=== PATIENT | female | born 1975 | race Caucasian/White ===

== ENCOUNTER 2020-09-27 12:22 | Inpatient (IN) | payer MEDICAID ==
[~2020-09-27] VITALS: Ht 167.6 cm; Wt 78.0 kg
[2020-09-27] MEDS ORDERED: IV NORMAL SALINE 1000ML BAG 1,000 ML IV ONE ×2 (12:45)
[2020-09-27] MEDS ORDERED: cefTRIAXone IV Push 1 GM VIAL. IVP ONE (12:45)
[2020-09-27] MEDS ORDERED: AZITHRMYCN 500MG IVPB FOR OMNI 250 ML IV ONE (12:45)
--- NOTE | 2020-09-27 12:50 | PHYS DOC ---
General Adult EDM: Chief Complaint: SHORTNESS OF BREATH HPI: HPI: 45-year-old female past medical history of autoimmune hepatitis/stage IV cirrhosis (follows at ), presents to the ED with complaints of worsening shortness of breath at rest with hemoptysis, constant chest pressure and generalized weakness for the past 4 days. Patient states she tested positive for Covid 4 days ago and is quarantined in a hotel room. Does smoke tobacco but is attempting to quit. No official COPD or asthma diagnosis-no h/o hospitalizations/intubations for emphysema. Reports "I feel dry, can I have ice chips." Review of Systems: Review of Systems: Constitutional: Denies fever or chills. [] Eyes: Denies change in visual acuity. [] HENT: Denies nasal congestion or sore throat. [] Respiratory: Denies retractions, increased work of breathing Cardiovascular: Denies edema or syncope GI: Denies abdominal pain, nausea, vomiting, bloody stools or diarrhea. [] : Denies dysuria or hematuria Musculoskeletal: Denies back pain or joint pain/swelling. [] Integument: Denies rash. [] Neurologic: Denies headache, or neck stiffness, focal weakness or sensory changes. [] Endocrine: Denies polyuria or polydipsia. [] Lymphatic: Denies swollen glands. [] Psychiatric: Denies depression or anxiety. [] Heart Score: HEART Score for Chest Pain: HEART Score for Chest Pain Response (Comments) Value History Slighlty/Non-Suspicious 0 ECG Nonspecific Repolarizatio 1 Age >45 - < 65 1 Risk Factors 1 or 2 Risk Factors 1 Troponin < Normal Limit 0 Total 3 Risk Factors: Risk Factors: DM, Current or recent (<one month) smoker, HTN, HLP, family history of CAD, obesity. Risk Scores: Score 0 - 3: 2.5% MACE over next 6 weeks - Discharge Home Score 4 - 6: 20.3% MACE over next 6 weeks - Admit for Clinical Observation Score 7 - 10: 72.7% MACE over next 6 weeks - Early Invasive Strategies Current Medications: Current Medications Medications (Trade) Dose Ordered Sig/Hilaria Start Time Stop Time Status Last Admin Dose Admin Azithromycin 250 ml @ 250 mls/hr 1X ONCE 09/27/20 12:45 09/27/20 13:44 UNV Ceftriaxone Sodium (Rocephin) 1 gm 1X ONCE 09/27/20 12:45 09/27/20 12:46 UNV Sodium Chloride 1,000 ml @ 1,000 mls/hr 1X ONCE 09/27/20 12:45 09/27/20 13:44 UNV Physical Exam: PE: Constitutional: Flu appearing, febrile HENT: Normocephalic, atraumatic, Eyes: EOMI, conjunctiva normal, no discharge. Neck: Normal range of motion, supple, Cardiovascular: S1/2 present, regular rhythm, tachycardic Lungs & Thorax: Speaking in full sentences, bilateral equal chest rise, no tac hypnea or increased work of breathing, no rales crackles or wheezing, bilateral breath sounds, 93-94% RA Abdomen: soft, no tenderness, +fluid wave Skin: Warm, dry, no erythema, spider angiomas over upper chest Back: No tenderness, no CVA tenderness. [] Extremities: No tenderness, no cyanosis, no edema Neurologic: Alert and oriented X 3, normal motor function, normal sensory funct ion, no focal deficits noted. [] Psychologic: Affect normal, judgement normal, mood normal. [] EKG: EKG: Sinus tachycardia at 105 bpm, left axis deviation, normal intervals, T wave inversion aVL, no ST elevations or ST depressions Radiology/Procedures: Radiology/Procedures: IMAGING REPORT Signed PATIENT: JOHN BUTLERACCOUNT: [id number] : 1975 LOCATION: ER AGE: 45 SEX: F EXAM STATUS: REG ER ORD. PHYSICIAN: LANCE BERMAN DO REASON: soa, covid+, r/o pe PROCEDURE: CT ANGIOGRAPHY CHEST EXAM: CT Pulmonary Angiogram INDICATION: Reason: soa, covid+, r/o pe / Spl. Instructions: IV OMNI 350 100 MLS / History: TECHNIQUE: Multi-detector row images were acquired from the thoracic inlet through the upper abdomen with the use of IV contrast. Sagittal and coronal images were acquired from the transaxial data. MIP images of the pulmonary arteries were obtained. All CT scans performed at this facility utilize dose optimization techniques as appropriate to the exam, including the following: Automated exposure control and adjustment of the mA and/or KV according to patient size (this includes techniques or standardized protocols for targeted exams where dose is indication/reason for exam). IV CONTRAST: Administered COMPARISON: None FINDINGS: PULMONARY ARTERIES: No pulmonary emboli are identified. CARDIOVASCULAR: Unremarkable Aorta is normal caliber. MEDIASTINUM & EARLE: Mild mediastinal and right greater than left hilar adenopathy. No mass. LUNGS: Patchy bilateral peripheral predominant groundglass opacities are present, right greater than left hepatic consistent with atypical pneumonia. PLEURAL SPACE: No pleural effusions or pneumothorax. OSSEOUS & SOFT TISSUE: Unremarkable ABDOMEN: Nodular hepatic contour consistent with cirrhosis with partially imaged gallstone in the gallbladder fossa and enhancing varices in the gastric fundus.. IMPRESSION: 1. No pulmonary emboli. 2. Bilateral infiltrates consistent with atypical pneumonia with associated mild mediastinal and hilar adenopathy. 3. Cirrhosis with gastric varices. Electronically signed by: Akhil Murodck MD (09/27/2020 2:50 PM) [id number] DICTATED and SIGNED BY: AKHIL MURDOCK MD DATE: 09/27/20 [id number] 0 Course & Med Decision Making: Course & Med Decision Making Pertinent Labs and Imaging studies reviewed. (See chart for details) Concern for cp and dyspnea in the setting of positive COVID-19 bilateral pneumonia. Urinalysis with no bacteria, is contaminated with large blood. CT of the chest shows no pulmonary emboli and normal caliber of the aorta. Patient is tachycardic, has no tachypnea. Normal lactic acid. Patient is afebrile with no leukocytosis or leukopenia. Patient with known stage IV cirrhosis with transaminitis, no prior labs for baseline comparison. Patient with no right upper quadrant pain. Does not meet SIRS criteria although is strongly considered with persistent tachycardia (115), worsen with ambulation. Drug screen pending. Pt agrees with plan for admission. I have spoken with the patient and/or caregivers. I have explained the pat ient's condition, diagnosis and treatment plan based on the information available to me at this time. I have answered the patient's and/or caregivers questions and answered any concerns. The patient and/or caregivers have as good an understanding of the patient's diagnosis, condition and treatment plan as can be expected at this point. The patient has been stabilized within the capability of the emergency department. The patient will be transported for further care and management or will be moved to an observation or inpatient service. I have communicated with the staff or medical practitioner taking over this patient's care. Dragon Disclaimer: Dragon Disclaimer: This electronic medical record was generated, in whole or in part, using a voice recognition dictation system. Departure Departure Impression: Primary Impression: CAP (community acquired pneumonia) Additional Impressions: COVID-19 Sinus tachycardia Disposition: 09 ADMITTED INPT THIS HOSP Admitting Physician: OZ (Dr. Aranda) [facility] Sep 27, 2020 12:50
[2020-09-27] MEDS ORDERED: IOHEXOL 350 MG/ML 100 ML VIAL. IV ONE (13:30)
[2020-09-27 13:49] LABS: BASO % 0 % (0-3); EOS % 0 % (0-3); HEMOGLOBIN 14.6 g/dL (12.0-15.5); LYMPH # 1.3 x10^3/uL (1.0-4.8); LYMPH % 16 % (24-48); MEAN CORPUSCULAR HEMOGLOBIN 34 pg (25-35); MEAN CORPUSCULAR HGB CONC 34 g/dL (31-37); MEAN CORPUSCULAR VOLUME 101 fL (79-100); MONO # 0.6 x10^3/uL (0.0-1.1); MONO % 7 % (0-9); NEUT % 76 % (31-73); PLATELET COUNT 107 x10^3/uL (140-400); RED BLOOD COUNT 4.24 x10^6/uL (3.50-5.40); RED CELL DISTRIBUTION WIDTH 14.1 % (11.5-14.5); WHITE BLOOD COUNT 7.9 x10^3/uL (4.0-11.0)
[2020-09-27 13:53] LABS: BILIRUBIN,URINE NEGATIVE (NEG); CLARITY,URINE CLEAR; COLOR,URINE YELLOW; NITRITE,URINE NEGATIVE (NEG); PROTEIN,URINE NEGATIVE (NEG-TRACE)
[2020-09-27 14:03] LABS: CALCIUM 9.8 mg/dL (8.5-10.1); CREATININE 0.9 mg/dL (0.6-1.0); GFR 67.4; POTASSIUM 4.5 mmol/L (3.5-5.1)
[2020-09-27 14:10] LABS: TOTAL BILIRUBIN 1.7 mg/dL (0.2-1.0); TOTAL PROTEIN 7.9 g/dL (6.4-8.2)
[2020-09-27 14:13] LABS: RBC,URINE 20-40 /HPF (0-2)
[2020-09-27 14:14] LABS: BACTERIA,URINE 0 /HPF (0-FEW); WBC,URINE OCC /HPF (0-4)
[2020-09-27 14:24] LABS: ALBUMIN 2.4 g/dL (3.4-5.0); ALBUMIN/GLOBULIN RATIO 0.4 (1.0-1.7)
--- NOTE | 2020-09-27 14:53 | RAD ---
EXAM: CT Pulmonary Angiogram INDICATION: Reason: soa, covid+, r/o pe / Spl. Instructions: IV OMNI 350 100 MLS / History: TECHNIQUE: Multi-detector row images were acquired from the thoracic inlet through the upper abdomen with the use of IV contrast. Sagittal and coronal images were acquired from the transaxial data. MIP images of the pulmonary arteries were obtained. All CT scans performed at this facility utilize dose optimization techniques as appropriate to the exam, including the following: Automated exposure control and adjustment of the mA and/or KV according to patient size (this includes techniques or standardized protocols for targeted exams where dose is indication/reason for exam). IV CONTRAST: Administered COMPARISON: None FINDINGS: PULMONARY ARTERIES: No pulmonary emboli are identified. CARDIOVASCULAR: Unremarkable Aorta is normal caliber. MEDIASTINUM & EARLE: Mild mediastinal and right greater than left hilar adenopathy. No mass. LUNGS: Patchy bilateral peripheral predominant groundglass opacities are present, right greater than left hepatic consistent with atypical pneumonia. PLEURAL SPACE: No pleural effusions or pneumothorax. OSSEOUS & SOFT TISSUE: Unremarkable ABDOMEN: Nodular hepatic contour consistent with cirrhosis with partially imaged gallstone in the gallbladder fossa and enhancing varices in the gastric fundus.. IMPRESSION: 1. No pulmonary emboli. 2. Bilateral infiltrates consistent with atypical pneumonia with associated mild mediastinal and hilar adenopathy. 3. Cirrhosis with gastric varices. Electronically signed by: Santino Murdock MD (09/27/2020 2:50 PM) [id number]
[2020-09-27] MEDS ORDERED: KETOROLAC 15 MG/ML VIAL. IVP ONE (15:00)
[2020-09-27] MEDS ORDERED: PROCHLORPERAZINE 10 MG/2 ML VIAL. IV ONE (15:00)
[2020-09-27 16:55] LABS: AMPHETAMINE/METHAMPHETAMINE POS (NEG); BARBITURATES NEG (NEG); BENZODIAZEPINES NEG (NEG); CANNABINOIDS NEG (NEG); COCAINE NEG (NEG); METHADONE NEG (NEG); OPIATES POS (NEG); PHENCYCLIDINE NEG (NEG)
[2020-09-27 17:00] VITALS: BP 123/88
[2020-09-27] MEDS ORDERED: diphenhydrAMINE 50 MG/ML VIAL IVP PRN (17:00)
[2020-09-27] MEDS ORDERED: DOCUSATE SODIUM 100 MG CAPSULE. PO PRN (17:00)
[2020-09-27] MEDS ORDERED: LORazepam 0.5 MG TABLET PO PRN (17:00)
[2020-09-27] MEDS ORDERED: ONDANSETRON PF 4 MG/2 ML VIAL. IV PRN (17:00)
[2020-09-27] MEDS ORDERED: fentaNYL PF VIAL 100 MCG/2 ML VIAL IV PRN (17:00)
[2020-09-27] MEDS ORDERED: guaiFENesin ORAL 200 MG/10 ML LIQUID. PO PRN (17:00)
[2020-09-27] MEDS ORDERED: ACETAMINOPHEN 325 MG TABLET. PO PRN ×2 (17:00)
--- NOTE | 2020-09-27 17:10 | PDOC1 ---
History and Physical Date of Admission Date of Admission 09/27/2020 Identification/Chief Complaint Chief Complaint Shortness of breath Source Source: Chart review, Patient History of Present Illness History of Present Illness Patient is a 45-year-old female with past medical history of autoimmune hepatitis who was recently diagnosed with COVID-19 approximately 4 days prior to her visit to the emergency department. The patient has been quarantining in a local hotel but today apparently was more short of air coughing and not feeling well. She decided to come to the emergency department for evaluation. She underwent a CTA of the chest with no evidence of pulmonary emboli unfortunately the patient has bilateral pneumonia which most likely is secondary to her COVID-19 infection. Given the acuity of her presentation she will be started on broad-spectrum antibiotics and have started her also on methylprednisolone ascorbic acid and I will put orders also for thiamine and enoxaparin. As part of her COVID-19 supportive measures she will also receive vitamin D and zinc. At the time of my visit the patient is a poor historian due to the acuity of her disease. She is moaning and groaning and answering in yes and no fashion. Not able to provide me much history at this time, we will also check ammonia levels noted to ensure that she is not suffering from a decompensation due to her u nderlying hepatic disease. All of her concerns were addressed to the best of my abilities. ER history is as follows: ED Adult General Template Patient Name: Iesha Holt Unit Number: [id number] Date of : 1975 Patient Status: Registered Emergency Room Attending Doctor: Kiersten Callahan DO Past Medical History Past Medical History General Adult General Adult EDM: Chief Complaint: SHORTNESS OF BREATH HPI: HPI: 45-year-old female past medical history of autoimmune hepatitis/stage IV cirrhosis (follows at ), presents to the ED with complaints of worsening shortness of breath at rest with hemoptysis, constant chest pressure and generalized weakness for the past 4 days. Patient states she tested positive for Covid 4 days ago and is quarantined in a hotel room. Does smoke tobacco but is attempting to quit. No official COPD or asthma diagnosis-no h/o hospitalizations/intubations for emphysema. Reports "I feel dry, can I have ice chips." Past Medical History Past Medical History Autoimmune hepatitis/cirrhosis Past Surgical History Past Surgical History: No pertinent history Family History Family History: No Significant Social History Smoke: No ALCOHOL: none Drugs: None Current Problem List Problem List Problems Medical Problems: (1) CAP (community acquired pneumonia) Status: Acute (2) COVID-19 Status: Acute (3) Sinus tachycardia Status: Acute Current Medications Current Medications Current Medications Medications (Trade) Dose Ordered Sig/Hilaria Start Time Stop Time Status Last Admin Dose Admin Acetaminophen (Tylenol) 650 mg PRN Q4HRS PRN 09/27/20 17:00 Ascorbic Acid (Vitamin C) 500 mg Q6HRS 09/27/20 18:00 Azithromycin (Zithromax) 500 mg DAILY 09/28/20 09:00 09/29/20 09:01 Ceftriaxone Sodium (Rocephin) 1 gm DAILY 09/28/20 13:00 Diphenhydramine HCl (Benadryl) 25 mg PRN Q4HRS PRN 09/27/20 17:00 Docusate Sodium (Colace) 100 mg PRN BID PRN 09/27/20 17:00 Enoxaparin Sodium (Lovenox 60mg Syringe) 60 mg Q24H 09/28/20 09:00 Famotidine (Pepcid) 20 mg BID 09/27/20 21:00 Fentanyl Citrate (Fentanyl 2ml Vial) 50 mcg PRN Q1HR PRN 09/27/20 17:00 09/28/20 16:59 Guaifenesin (Robitussin) 200 mg PRN Q4HRS PRN 09/27/20 17:00 Iohexol (Omnipaque 350 Mg/ml) 100 ml 1X ONCE 09/27/20 13:30 09/27/20 13:31 DC 09/27/20 13:30 100 ML Ketorolac Tromethamine (Toradol 15mg Vial) 15 mg 1X ONCE 09/27/20 15:00 09/27/20 15:01 DC 09/27/20 14:59 15 MG Lorazepam (Ativan) 0.5 mg PRN Q4HRS PRN 09/27/20 17:00 Methylprednisolone Sodium Succinate (SOLU-Medrol 40MG VIAL) 40 mg Q12HR 09/27/20 21:00 UNV Ondansetron HCl (Zofran) 4 mg PRN Q4HRS PRN 09/27/20 17:00 Prochlorperazine Edisylate (Compazine) 10 mg 1X ONCE 09/27/20 15:00 09/27/20 15:01 DC 09/27/20 14:59 10 MG Sodium Chloride 1,000 ml @ 1,000 mls/hr 1X ONCE 09/27/20 12:45 09/27/20 13:44 DC 09/27/20 13:31 1,000 MLS/HR Vitamin D (Vitamin D3) 2,000 unit DAILY 09/28/20 09:00 Zinc Sulfate (Orazinc) 220 mg DAILY 09/28/20 09:00 UNV Allergies Allergies Allergies Coded Allergies Type Severity Reaction Last Updated Verified Sulfa (Sulfonamide Antibiotics) Allergy Intermediate 09/27/20 Yes ROS Review of System CONSTITUTIONAL: No fever + chills EYES: No recent changes SKIN: No rash or itching CARDIOVASCULAR: No chest pain, syncope, palpitations, or edema RESPIRATORY: + SOB and cough GASTROINTESTINAL: No nausea, vomiting or abdominal pain NEUROLOGICAL: No headaches or weakness ENDOCRINE: No cold or heat intolerance GENITOURINARY: No urgency or frequency of urination MUSCULOSKELETAL: No back pain or joint pain LYMPHATICS: No enlarged lymph nodes PSYCHIATRIC: No anxiety or depression Unreliable due to the acute presentation of the patient Physical Exam Physical Exam GEN.: No apparent distress. Alert and oriented. HEENT: Head is normocephalic, atraumatic NECK: Supple. LUNGS: Clear to auscultation. HEART: RRR, S1, S2 present. Peripheral pulses intact ABDOMEN: Soft, nontender. Positive bowel sounds. EXTREMITIES: Without any cyanosis. NEUROLOGIC: Normal speech, normal tone PSYCHIATRIC: Normal affect, normal mood. SKIN: No ulcerations Vitals Vitals Vital Signs Date Time Temp Pulse Resp B/P (MAP) Pulse Ox O2 Delivery O2 Flow Rate FiO2 09/27/20 12:36 99.4 115 18 158/108 (125) 96 Room Air 99.4 Labs Labs Laboratory Tests Test 09/27/20 13:30 White Blood Count 7.9 x10^3/uL (4.0-11.0) Red Blood Count 4.24 x10^6/uL (3.50-5.40) Hemoglobin 14.6 g/dL (12.0-15.5) Hematocrit 43.0 % (36.0-47.0) Mean Corpuscular Volume 101 fL (79-100) Mean Corpuscular Hemoglobin 34 pg (25-35) Mean Corpuscular Hemoglobin Concent 34 g/dL (31-37) Red Cell Distribution Width 14.1 % (11.5-14.5) Platelet Count 107 x10^3/uL (140-400) Neutrophils (%) (Auto) 76 % (31-73) Lymphocytes (%) (Auto) 16 % (24-48) Monocytes (%) (Auto) 7 % (0-9) Eosinophils (%) (Auto) 0 % (0-3) Basophils (%) (Auto) 0 % (0-3) Neutrophils # (Auto) 6.0 x10^3/uL (1.8-7.7) Lymphocytes # (Auto) 1.3 x10^3/uL (1.0-4.8) Monocytes # (Auto) 0.6 x10^3/uL (0.0-1.1) Eosinophils # (Auto) 0.0 x10^3/uL (0.0-0.7) Basophils # (Auto) 0.0 x10^3/uL (0.0-0.2) Urine Collection Type Unknown Urine Color Yellow Urine Clarity Clear Urine pH 7.0 (<5.0-8.0) Urine Specific [place] >=1.030 (1.000-1.030) Urine Protein Negative mg/dL (NEG-TRACE) Urine Glucose (UA) >=1000 mg/dL (NEG) Urine Ketones (Stick) Negative mg/dL (NEG) Urine Blood Large (NEG) Urine Nitrite Negative (NEG) Urine Bilirubin Negative (NEG) Urine Urobilinogen Dipstick 1.0 mg/dL (0.2 mg/dL) Urine Leukocyte Esterase Negative (NEG) Urine RBC 20-40 /HPF (0-2) Urine WBC Occ /HPF (0-4) Urine Squamous Epithelial Cells Few /LPF Urine Bacteria 0 /HPF (0-FEW) Sodium Level 130 mmol/L (136-145) Potassium Level 4.5 mmol/L (3.5-5.1) Chloride Level 100 mmol/L (98-107) Carbon Dioxide Level 21 mmol/L (21-32) Anion Gap 9 (6-14) Blood Urea Nitrogen 19 mg/dL (7-20) Creatinine 0.9 mg/dL (0.6-1.0) Estimated GFR (Cockcroft-Gault) 67.4 BUN/Creatinine Ratio 21 (6-20) Glucose Level 305 mg/dL (70-99) Lactic Acid Level 1.8 mmol/L (0.4-2.0) Calcium Level 9.8 mg/dL (8.5-10.1) Total Bilirubin 1.7 mg/dL (0.2-1.0) Aspartate Amino Transf (AST/SGOT) 116 U/L (15-37) Alanine Aminotransferase (ALT/SGPT) 145 U/L (14-59) Alkaline Phosphatase 211 U/L (46-116) Creatine Kinase 78 U/L (26-192) Troponin I Quantitative 0.024 ng/mL (0.000-0.055) UE-Nmb-M-Type Natriuretic Peptide 169 pg/mL (0-124) Total Protein 7.9 g/dL (6.4-8.2) Albumin 2.4 g/dL (3.4-5.0) Albumin/Globulin Ratio 0.4 (1.0-1.7) Urine Opiates Screen Pos (NEG) Urine Methadone Screen Neg (NEG) Urine Barbiturates Neg (NEG) Urine Phencyclidine Screen Neg (NEG) Urine Amphetamine/Methamphetamine Pos (NEG) Urine Benzodiazepines Screen Neg (NEG) Urine Cocaine Screen Neg (NEG) Urine Cannabinoids Screen Neg (NEG) Urine Ethyl Alcohol Neg (NEG) Laboratory Tests Test 09/27/20 13:30 White Blood Count 7.9 x10^3/uL (4.0-11.0) Red Blood Count 4.24 x10^6/uL (3.50-5.40) Hemoglobin 14.6 g/dL (12.0-15.5) Hematocrit 43.0 % (36.0-47.0) Mean Corpuscular Volume 101 fL (79-100) Mean Corpuscular Hemoglobin 34 pg (25-35) Mean Corpuscular Hemoglobin Concent 34 g/dL (31-37) Red Cell Distribution Width 14.1 % (11.5-14.5) Platelet Count 107 x10^3/uL (140-400) Neutrophils (%) (Auto) 76 % (31-73) Lymphocytes (%) (Auto) 16 % (24-48) Monocytes (%) (Auto) 7 % (0-9) Eosinophils (%) (Auto) 0 % (0-3) Basophils (%) (Auto) 0 % (0-3) Neutrophils # (Auto) 6.0 x10^3/uL (1.8-7.7) Lymphocytes # (Auto) 1.3 x10^3/uL (1.0-4.8) Monocytes # (Auto) 0.6 x10^3/uL (0.0-1.1) Eosinophils # (Auto) 0.0 x10^3/uL (0.0-0.7) Basophils # (Auto) 0.0 x10^3/uL (0.0-0.2) Urine Collection Type Unknown Urine Color Yellow Urine Clarity Clear Urine pH 7.0 (<5.0-8.0) Urine Specific [place] >=1.030 (1.000-1.030) Urine Protein Negative mg/dL (NEG-TRACE) Urine Glucose (UA) >=1000 mg/dL (NEG) Urine Ketones (Stick) Negative mg/dL (NEG) Urine Blood Large (NEG) Urine Nitrite Negative (NEG) Urine Bilirubin Negative (NEG) Urine Urobilinogen Dipstick 1.0 mg/dL (0.2 mg/dL) Urine Leukocyte Esterase Negative (NEG) Urine RBC 20-40 /HPF (0-2) Urine WBC Occ /HPF (0-4) Urine Squamous Epithelial Cells Few /LPF Urine Bacteria 0 /HPF (0-FEW) Sodium Level 130 mmol/L (136-145) Potassium Level 4.5 mmol/L (3.5-5.1) Chloride Level 100 mmol/L (98-107) Carbon Dioxide Level 21 mmol/L (21-32) Anion Gap 9 (6-14) Blood Urea Nitrogen 19 mg/dL (7-20) Creatinine 0.9 mg/dL (0.6-1.0) Estimated GFR (Cockcroft-Gault) 67.4 BUN/Creatinine Ratio 21 (6-20) Glucose Level 305 mg/dL (70-99) Lactic Acid Level 1.8 mmol/L (0.4-2.0) Calcium Level 9.8 mg/dL (8.5-10.1) Total Bilirubin 1.7 mg/dL (0.2-1.0) Aspartate Amino Transf (AST/SGOT) 116 U/L (15-37) Alanine Aminotransferase (ALT/SGPT) 145 U/L (14-59) Alkaline Phosphatase 211 U/L (46-116) Creatine Kinase 78 U/L (26-192) Troponin I Quantitative 0.024 ng/mL (0.000-0.055) RT-Kdn-[id number]-Type Natriuretic Peptide 169 pg/mL (0-124) Total Protein 7.9 g/dL (6.4-8.2) Albumin 2.4 g/dL (3.4-5.0) Albumin/Globulin Ratio 0.4 (1.0-1.7) Urine Opiates Screen Pos (NEG) Urine Methadone Screen Neg (NEG) Urine Barbiturates Neg (NEG) Urine Phencyclidine Screen Neg (NEG) Urine Amphetamine/Methamphetamine Pos (NEG) Urine Benzodiazepines Screen Neg (NEG) Urine Cocaine Screen Neg (NEG) Urine Cannabinoids Screen Neg (NEG) Urine Ethyl Alcohol Neg (NEG) VTE Prophylaxis Ordered VTE Prophylaxis Devices: No VTE Pharmacological Prophylaxi: Yes Assessment/Plan Assessment/Plan COVID-19 infection Community-acquired pneumonia Autoimmune hepatitis/cirrhosis Hyponatremia Transaminitis most likely secondary to the underlying liver disorder Plan Broad-spectrum antibiotics with Rocephin and Zithromax We will start Solu-Medrol Ascorbic acid thiamine and heparin as part of the math + protocol Admit to the Covid unit Follow hemodynamics closely Encourage prone position Further recommendations based on the clinical course DVT prophylaxis with enoxaparin Justifications for Admission Other Justification covid 19 pneumonia ERICA PASTOR MD Sep 27, 2020 17:10
[2020-09-27] MEDS: ASCORBIC ACID 500 MG TABLET PO SCH ×2 (18:00→22:07)
--- NOTE | 2020-09-27 18:00 | NUR ---
Pt drowsy, will not answer this RN questions during admission assessment. Pt unable to verify home medications or emergency contact at this time. VSS, rotor blade installer applied, bed alarm applied, and dinner tray ordered for patient. Will continue to monitor.
[2020-09-27] MEDS: THIAMINE INJ 200 MG in IV DEXTROSE 5% 50 ML IV SCH (18:20)
[2020-09-27 19:53] VITALS: BP 127/83
[2020-09-27] MEDS: methylPREDNISolone SOD SUCC PF 40 MG/ML VIAL. IV SCH (22:07)
[2020-09-27] MEDS: FAMOTIDINE 20 MG TABLET. PO SCH (22:07)
[2020-09-27 23:16] VITALS: BP 133/77
[2020-09-28 03:55] VITALS: BP_SYST 127
[2020-09-28] MEDS: ASCORBIC ACID 500 MG TABLET PO SCH (06:51)
[2020-09-28 07:00] VITALS: BP 138/81
[2020-09-28] MEDS ORDERED: AZITHROMYCIN 250 MG TABLET. PO SCH (09:00)
[2020-09-28] MEDS ORDERED: CHOLECALCIFEROL (VITAMIN D3) 1,000 UNIT TABLET PO SCH (09:00)
[2020-09-28] MEDS ORDERED: ZINC SULFATE 220 MG CAPSULE. PO SCH (09:00)
[2020-09-28] MEDS: FAMOTIDINE 20 MG TABLET. PO SCH (09:29)
[2020-09-28] MEDS: THIAMINE INJ 200 MG in IV DEXTROSE 5% 50 ML IV SCH (09:29)
[2020-09-28] MEDS: methylPREDNISolone SOD SUCC PF 40 MG/ML VIAL. IV SCH (10:04)
[2020-09-28 10:58] VITALS: BP 123/80
--- NOTE | 2020-09-28 11:25 | PDOC ---
[employer] PROGRESS NOTE Date of Service DOS: DATE: 09/28/20 TIME: 11:24 Chief Complaint Chief Complaint COVID-19 infection Community-acquired pneumonia Autoimmune hepatitis/cirrhosis Hyponatremia Transaminitis most likely secondary to the underlying liver disorder History of Present Illness History of Present Illness 09/28/2022 Patient seen exam Discussed with RN Discussed with case management Chart reviewed Vitals/I&O Vitals/I&O: Vital Signs Date Time Temp Pulse Resp B/P (MAP) Pulse Ox O2 Delivery O2 Flow Rate FiO2 09/28/20 10:58 97.8 84 18 123/80 (94) 100 Room Air 97.8 I & O 09/27/20 09/27/20 09/28/20 15:00 23:00 07:00 Intake Total 60 ml Output Total 800 ml Balance -740 ml Physical Exam General: mild distress Heart: Normal S1, No murmurs Lungs: Crackles Abdomen: Soft, No tenderness Extremities: No edema Skin: No rashes Labs Labs: Laboratory Tests Test 09/27/20 13:30 09/28/20 04:29 White Blood Count 7.9 x10^3/uL (4.0-11.0) Red Blood Count 4.24 x10^6/uL (3.50-5.40) Hemoglobin 14.6 g/dL (12.0-15.5) Hematocrit 43.0 % (36.0-47.0) Mean Corpuscular Volume 101 fL (79-100) Mean Corpuscular Hemoglobin 34 pg (25-35) Mean Corpuscular Hemoglobin Concent 34 g/dL (31-37) Red Cell Distribution Width 14.1 % (11.5-14.5) Platelet Count 107 x10^3/uL (140-400) Neutrophils (%) (Auto) 76 % (31-73) Lymphocytes (%) (Auto) 16 % (24-48) Monocytes (%) (Auto) 7 % (0-9) Eosinophils (%) (Auto) 0 % (0-3) Basophils (%) (Auto) 0 % (0-3) Neutrophils # (Auto) 6.0 x10^3/uL (1.8-7.7) Lymphocytes # (Auto) 1.3 x10^3/uL (1.0-4.8) Monocytes # (Auto) 0.6 x10^3/uL (0.0-1.1) Eosinophils # (Auto) 0.0 x10^3/uL (0.0-0.7) Basophils # (Auto) 0.0 x10^3/uL (0.0-0.2) Urine Collection Type Unknown Urine Color Yellow Urine Clarity Clear Urine pH 7.0 (<5.0-8.0) Urine Specific [place] >=1.030 (1.000-1.030) Urine Protein Negative mg/dL (NEG-TRACE) Urine Glucose (UA) >=1000 mg/dL (NEG) Urine Ketones (Stick) Negative mg/dL (NEG) Urine Blood Large (NEG) Urine Nitrite Negative (NEG) Urine Bilirubin Negative (NEG) Urine Urobilinogen Dipstick 1.0 mg/dL (0.2 mg/dL) Urine Leukocyte Esterase Negative (NEG) Urine RBC 20-40 /HPF (0-2) Urine WBC Occ /HPF (0-4) Urine Squamous Epithelial Cells Few /LPF Urine Bacteria 0 /HPF (0-FEW) Sodium Level 130 mmol/L (136-145) Potassium Level 4.5 mmol/L (3.5-5.1) Chloride Level 100 mmol/L (98-107) Carbon Dioxide Level 21 mmol/L (21-32) Anion Gap 9 (6-14) Blood Urea Nitrogen 19 mg/dL (7-20) Creatinine 0.9 mg/dL (0.6-1.0) Estimated GFR (Cockcroft-Gault) 67.4 BUN/Creatinine Ratio 21 (6-20) Glucose Level 305 mg/dL (70-99) Lactic Acid Level 1.8 mmol/L (0.4-2.0) Calcium Level 9.8 mg/dL (8.5-10.1) Total Bilirubin 1.7 mg/dL (0.2-1.0) Aspartate Amino Transf (AST/SGOT) 116 U/L (15-37) Alanine Aminotransferase (ALT/SGPT) 145 U/L (14-59) Alkaline Phosphatase 211 U/L (46-116) Creatine Kinase 78 U/L (26-192) Troponin I Quantitative 0.024 ng/mL (0.000-0.055) XH-Eal-I-Type Natriuretic Peptide 169 pg/mL (0-124) Total Protein 7.9 g/dL (6.4-8.2) Albumin 2.4 g/dL (3.4-5.0) Albumin/Globulin Ratio 0.4 (1.0-1.7) Urine Opiates Screen Pos (NEG) Urine Methadone Screen Neg (NEG) Urine Barbiturates Neg (NEG) Urine Phencyclidine Screen Neg (NEG) Urine Amphetamine/Methamphetamine Pos (NEG) Urine Benzodiazepines Screen Neg (NEG) Urine Cocaine Screen Neg (NEG) Urine Cannabinoids Screen Neg (NEG) Urine Ethyl Alcohol Neg (NEG) Ammonia 44 mcmol/L (11-34) Assessment and Plan Assessmemt and Plan Problems Medical Problems: (1) CAP (community acquired pneumonia) Status: Acute (2) COVID-19 Status: Acute (3) Sinus tachycardia Status: Acute COVID-19 infection Community-acquired pneumonia Autoimmune hepatitis/cirrhosis Hyponatremia Transaminitis most likely secondary to the underlying liver disorder Plan Broad-spectrum antibiotics with Rocephin and Zithromax We will start Solu-Medrol Ascorbic acid thiamine and heparin as part of the [facility] protocol Admit to the Covid unit Follow hemodynamics closely Encourage prone position Further recommendations based on the clinical course DVT prophylaxis with enoxaparin Comment Review of Relevant I have reviewed the following items maryanne (where applicable) has been applied. Medications: Current Medications Medications (Trade) Dose Ordered Sig/Hilaria Route PRN Reason Start Time Stop Time Status Last Admin Dose Admin Ceftriaxone Sodium (Rocephin) 1 gm 1X ONCE IVP 09/27/20 12:45 09/27/20 12:52 DC 09/27/20 14:04 Azithromycin 250 ml @ 250 mls/hr 1X ONCE IV 09/27/20 12:45 09/27/20 13:44 DC 09/27/20 14:05 Sodium Chloride 1,000 ml @ 1,000 mls/hr 1X ONCE IV 09/27/20 12:45 09/27/20 13:44 DC 09/27/20 13:30 Sodium Chloride 1,000 ml @ 1,000 mls/hr 1X ONCE IV 09/27/20 12:45 09/27/20 13:44 DC 09/27/20 13:31 Iohexol (Omnipaque 350 Mg/ml) 100 ml 1X ONCE IV 09/27/20 13:30 09/27/20 13:31 DC 09/27/20 13:30 Prochlorperazine Edisylate (Compazine) 10 mg 1X ONCE IV 09/27/20 15:00 09/27/20 15:01 DC 09/27/20 14:59 Ketorolac Tromethamine (Toradol 15mg Vial) 15 mg 1X ONCE IVP 09/27/20 15:00 09/27/20 15:01 DC 09/27/20 14:59 Enoxaparin Sodium (Lovenox 60mg Syringe) 60 mg Q24H SQ 09/28/20 09:00 09/28/20 09:29 Azithromycin (Zithromax) 500 mg DAILY PO 09/28/20 09:00 09/29/20 09:01 09/28/20 09:29 Zinc Sulfate (Orazinc) 220 mg DAILY PO 09/28/20 09:00 09/28/20 09:31 Vitamin D (Vitamin D3) 2,000 unit DAILY PO 09/28/20 09:00 09/28/20 09:29 Ascorbic Acid (Vitamin C) 500 mg Q6HRS PO 09/27/20 18:00 09/28/20 06:51 Famotidine (Pepcid) 20 mg BID PO 09/27/20 21:00 09/28/20 09:29 Methylprednisolone Sodium Succinate (SOLU-Medrol 40MG VIAL) 40 mg Q12HR IV 09/27/20 21:00 09/28/20 10:04 Thiamine HCl 200 mg/Dextrose 52 ml @ 102 mls/hr DAILY IV 09/27/20 18:00 09/28/20 09:29 Justifications for Admission Other Justification covid 19 pneumonia CASTMODE,NIAL K III DO Sep 28, 2020 11:25
[2020-09-28] MEDS ORDERED: LACTOBACILLUS RHAMNOSUS GG 1 CAPSULE. PO SCH (12:00)
--- NOTE | 2020-09-28 12:01 | DS ---
DATE OF DISCHARGE: 09/28/2020 ADMISSION DIAGNOSES: Bilateral pneumonia and COVID-19. DISCHARGE DIAGNOSES: Resolving pneumonia, resolving COVID-19. HOSPITAL COURSE: The patient is a pleasant middle-aged female who presented with shortness of breath, was noted to have pneumonia and COVID-19. She was admitted. We gave her antibiotics and COVID-19 protocol. Over the past couple of days, she has returned to her baseline. I saw her and examined this morning. Heart tones are normal. Lungs are clear. We plan to discharge on p.o. antibiotics. DISPOSITION: Home. ACTIVITY: As tolerated. DIET: Low sodium. MEDICATIONS: Please see MRAD. TOTAL TIME: 34 minutes. HERNAN SOLIS DO DR: NIC/yossi JOB#: [id number] / [id number]
--- NOTE | 2020-09-28 12:15 | NUR ---
Discharge Note: JOHN BUTLER [address] [place] [address] Discharge instructions and discharge home medications reviewed with Patient and a copy given. All questions have been answered and understanding verbalized. The following instructions and handouts were given: f/u with pcp within one week. Prescriptions for z-pack, medrol dose pack, and augmentin given to patient. Discontinued lines and drains: Peripheral IV intact. Patient discharged to Home or Self Care with Family Member via Wheelchair.
[2020-09-28] MEDS ORDERED: cefTRIAXone IV Push 1 GM VIAL. IVP SCH (13:00)
--- NOTE | 2020-09-28 17:35 | NUR ---
SW following for discharge planning. Spoke with RN and reviewed chart. Pt to discharge home today, self-care. No SW needs identified.
== END 2020-09-28 12:15 | disposition home or self-care (01) | DRG 177 ==
LOC: ER 12:22 → 6 SOUTH 16:52
PROVIDERS: ADMIT Internal Medicine; ATTEND Internal Medicine
DX: U07.1 COVID-19 (principal); J12.89 Other viral pneumonia; E87.1 Hypo-osmolality and hyponatremia; Z88.2 Allergy status to sulfonamides; R00.0 Tachycardia, unspecified; F17.200 Nicotine dependence, unspecified, uncomplicated; I86.4 Gastric varices; K74.60 Unspecified cirrhosis of liver; K75.4 Autoimmune hepatitis; R74.01 Elevation of levels of liver transaminase levels
CPT/HCPCS: 36415; 71275; 80053; 80307; 81001; 82140; 82550; 83605; 83880; 84484; 85025; 87040; J0456; J0696; J0780; J1650; J1885; J2920; J3411; J7030; J7060; Q9967; G0378